=== PATIENT | female | born 1990 ===

== ENCOUNTER 2023-05-28 20:39 | Outpatient (REF) | payer MEDICAID, SELFPAY | END 2023-05-28 20:40 | disposition home or self-care (01) | LOC: NCHCN 20:39 | PROVIDERS: Visit Provider Family Medicine | DX: J02.9 Acute pharyngitis, unspecified (principal) | CPT/HCPCS: 87070 ==

== ENCOUNTER 2023-07-18 11:10 | Outpatient (REF) | payer MEDICAID, SELFPAY ==
[2023-07-18 15:05] LABS: Anion Gap 10.5 mmol/L (3-11); BUN 11 mg/dL (7-18); CO2 25.5 mmol/L (21.0-32.0); CREATININE 0.8 mg/dL (0.55-1.02); Calcium 10.2 mg/dL (8.5-10.1); Chloride 100 mmol/L (98-107); Estimated GFR 100.33 (mL/min/1.73m2); Glucose 107 mg/dL (74-106); Potassium 4.4 mmol/L (3.5-5.1); Sodium 136 mmol/L (136-145)
== END 2023-07-18 11:11 | disposition home or self-care (01) ==
LOC: NCHCN 11:10
PROVIDERS: Visit Provider Nurse Practitioner Family
DX: I10 Essential (primary) hypertension (principal)
CPT/HCPCS: 80048